=== PATIENT | male | born 1975 | race Caucasian/White ===

== ENCOUNTER 2018-07-10 14:24 | Emergency (ER) | payer BC, OTHER ==
[~2018-07-10] VITALS: Ht 165.1 cm; Wt 90.3 kg
[~2018-07-10 14:24] MED LIST: DENIES
[2018-07-10 14:26] VITALS: Ht 165.1 cm; Wt 90.3 kg
--- NOTE | 2018-07-10 20:40 | ERD ---
ER Documentation Chief Complaint Chief Complaint Pt feeling depressed, SI idiation, plan to cut with knife. HPI This is a 42-year-old male with a history of trauma to the left hand with chronic discoordination, depression with previous suicidal ideations and desire for deliberate self cutting who is presenting with acute suicidal ideations and a desire for deliberate self cutting. The patient was evaluated by his physician today and was given bad news regarding his left hand. The patient reportedly needs to use his hands for his job, but he was told that he is unlikely to ever regain complete dexterity with the hand and that he was likely not going to be able to work in his previous capacity. Since this episode, the patient no longer wants to live anymore. He has thought about cutting his arms. The patient does not endorse significant issues with sleep. The patient does feel anxious and depressed. He does endorse a decrease in interest of things he used to enjoy. He endorses difficulty concentrating. He has a decreased appetite. He does endorse guilty feelings regarding his previous trauma and his inability to work for his family. He does not endorse auditory hallucinations. He does note that when he closes his eyes, he sees shadow figures moving about. He does not endorse any homicidal ideations. The patient denies feeling sick recently. The patient denies fever or chills. The patient has had no headache or vision changes. The patient does not endorse neck or back pain. The patient denies lightheadedness or dizziness. The patient has had no chest pain or trouble breathing. The patient denies nausea or vomiting. The patient denies abdominal pain. The patient denies changes to bowel movements or urination. The patient has had no focal deficits. The patient has had no weakness or numbness or tingling to the face or extremities. ROS All systems reviewed and are negative except as per history of present illness. Medications Home Meds Discontinued Reported Medications [Denies] No Conflict Check 09/08/10 Allergies Allergies: Coded Allergies: No Known Allergies (Verified Allergy, Mild, 07/10/18) PMhx/Soc History of Surgery: Yes (left arm injury ) Anesthesia Reaction: No Hx Neurological Disorder: No Hx Respiratory Disorders: No Hx Cardiac Disorders: No Hx Psychiatric Problems: Yes (Depression, anxiety) Hx Miscellaneous Medical Probl: No Hx Alcohol Use: No Hx Substance Use: No Hx Tobacco Use: No Smoking Status: Unknown if ever smoked FmHx Family History: No diabetes Physical Exam Vitals Vital Signs Date Temp Pulse Resp B/P (MAP) Pulse Ox O2 O2 Flow FiO2 Time Delivery Rate 07/10/18 80 19 107/62 96 Room Air 19:19 (77) 07/10/18 97.9 94 18 134/84 98 14:26 (101) Physical Exam Const: No apparent distress, well-developed, well-nourished Head: Normocephalic, Atraumatic Eyes: Normal Conjunctiva. Extraocular movements intact. Pupils equal, round and reactive to light ENT: Normal External Ears, Nose and Mouth. Neck: Full range of motion. No meningismus. Resp: Clear to auscultation bilaterally, No wheezes, rales or rhonchi Cardio: Regular rate and rhythm. No murmurs, rubs or gallops Abd: Soft, non tender, non distended. Normal bowel sounds Skin: No petechiae or rashes Back: No midline tenderness. No CVA tenderness Ext: No cyanosis, or edema. Large scar to the left forearm. Neur: Awake and alert, oriented 4. Cranial nerves intact. No facial droop. Normal strength, sensation. Decreased dexterity to the right hand. Psych: Depressed affect, suicidal ideations, please see HPI for further details. Result Diagram: 07/10/18 1536 07/10/18 1536 Results 24 hrs Laboratory Tests Test 07/10/18 15:36 White Blood Count 6.6 10^3/ul Red Blood Count 5.32 10^6/ul Hemoglobin 14.0 g/dl Hematocrit 42.1 % Mean Corpuscular Volume 79.1 fl Mean Corpuscular Hemoglobin 26.3 pg Mean Corpuscular Hemoglobin Concent 33.3 g/dl Red Cell Distribution Width 14.2 % Platelet Count 292 10^3/UL Mean Platelet Volume 11.8 fl Immature Granulocytes % 0.300 % Neutrophils % 58.3 % Lymphocytes % 32.7 % Monocytes % 6.7 % Eosinophils % 1.5 % Basophils % 0.5 % Nucleated Red Blood Cells % 0.0 /100WBC Immature Granulocytes # 0.020 10^3/ul Neutrophils # 3.8 10^3/ul Lymphocytes # 2.1 10^3/ul Monocytes # 0.4 10^3/ul Eosinophils # 0.1 10^3/ul Basophils # 0.0 10^3/ul Nucleated Red Blood Cells # 0.0 10^3/ul Urine Color YELLOW Urine Clarity CLEAR Urine pH 7.0 Urine Specific [place] 1.020 Urine Ketones NEGATIVE mg/dL Urine Nitrite NEGATIVE mg/dL Urine Bilirubin NEGATIVE mg/dL Urine Urobilinogen NEGATIVE mg/dL Urine Leukocyte Esterase NEGATIVE [place]/ul Urine Hemoglobin NEGATIVE mg/dL Urine Glucose NEGATIVE mg/dL Urine Total Protein NEGATIVE mg/dl Sodium Level 138 mmol/L Potassium Level 3.9 mmol/L Chloride Level 104 mmol/L Carbon Dioxide Level 24 mmol/L Anion Gap 10 Blood Urea Nitrogen 12 mg/dl Creatinine 0.52 mg/dl Est Glomerular Filtrat Rate mL/min > 60 mL/min Glucose Level 118 mg/dl Calcium Level 9.1 mg/dl Total Bilirubin 0.0 mg/dl Direct Bilirubin 0.00 mg/dl Indirect Bilirubin 0.0 mg/dl Aspartate Amino Transf (AST/SGOT) 22 IU/L Alanine Aminotransferase (ALT/SGPT) 24 IU/L Alkaline Phosphatase 68 IU/L Total Protein 7.0 g/dl Albumin 4.2 g/dl Globulin 2.80 g/dl Albumin/Globulin Ratio 1.50 Salicylates Level < 1.0 mg/dl Urine Opiates Screen Negative Acetaminophen Level < 10.0 ug/ml Urine Barbiturates Negative Urine Amphetamines Screen Negative Urine Benzodiazepines Screen Negative Urine Cocaine Screen Negative Urine Cannabinoids Negative Ethyl Alcohol Level < 10.0 mg/dl Procedures/MDM MDM The patient's presentation warrants further investigation. Previous medical records, if available, were reviewed. LABS The patient's laboratory testing was obtained and reviewed. No emergent treatment was required unless described below. CBC: No E/o of systemic infection or severe anemia or thrombocytopenia CMP: No E/o severe acidosis or alkalosis or renal failure or liver disease or diabetic ketoacidosis Urine: No E/o acute infection or hematuria Tox: No E/o alcohol abuse. No E/o illicit drug use. No E/o salicylate or acetaminophen use. TREATMENT/DISPOSITION The patient's workup included a medical screening examination, laboratory analysis, and diagnostic imaging such as EKG, chest x-ray or CT brain as indicated. The patient's laboratory analysis, diagnostic imaging do not suggest an acute organic pathology. At this time I believe the patient's presentation is consistent with underlying psychiatric illness and likely exacerbation of this illness and/or psychosis. I have a much lower clinical concern for delirium or acute organic pathology such as toxicologic, metabolic, ischemic, intracranial hemorrhage, infectious process. However, we must rule this out prior to relying a diagnosis of underlying psychiatric illness. The patient is medically cleared for psychiatric evaluation. I kept the patient and/or family informed of laboratory and diagnostic imaging results throughout the emergency room course. The patient did not require any physical or chemical restraint while under my care. The patient was medically cleared. Psychiatric consultation: Telemetry medicine psychiatry has been consulted on this case to evaluate the patient for possible acute psychiatric illness that would require inpatient hospitalization. Tele-psychiatric recommendations are currently pending. Medication recommendations will be addressed. I do feel that the patient will require a 5150 for inpatient psychiatric management. The patient will be signed out to the oncoming physician. OBSERVATION NOTE Time: 4 hours Family Hx: No Diabetes Evaluation: Multiple exams showed improving symptoms and no evidence of worsening psychosis Disclaimer: Inadvertent spelling and grammatical errors are likely due to EHR/dictation software use and do not reflect on the overall quality of patient care. Note that the electronic time recorded on this note does not necessarily reflect the actual time of the patient encounter. Departure Diagnosis: Primary Impression: Major depressive disorder Major depression recurrence: recurrent Active/Remission status: currently active Major depression episode severity: severe Psychotic features: with psychotic features Qualified Codes: F33.3 - Major depressive disorder, recurrent, severe with psychotic symptoms Additional Impressions: Suicidal ideations Visual hallucinations Condition: Serious RADHAMES GALEAS MD Jul 10, 2018 20:39
--- NOTE | 2018-07-10 20:49 | PSY ---
Date/Time of Note Date/Time of Note DATE: 07/10/18 TIME: 20:30 Psychiatric Subjective Eval Consent Pt consented to telemedicine: Yes Subjective Evaluation Patient location: emergency Chief Complaint: Pt feeling depressed, SI idiation, plan to cut with knife. History of present illness Patient seen with hospital phone interpretation service. The patient stated he came tonight because he had an accident in the past at work (February,) involving cutting the tendons in his hand and today his doctor told him he didn't want to talk to him anymore or treat him anymore as there is nothing more he could do for him. He stated he felt somewhat depressed since the accident but today's events made him feel more depressed. He stated his went to the store today, and when she returned he was about to "hurt himself." He had been thinking about "cutting his veins" and bleeding to . He had thought about doing this in the past as well but today after being told that nothing more c ould be done with his hand and that he wouldn't be able to work anymore he decided to do it. He stated he had not taken any action yet today but had only been planning and deciding to do it today. He stated since being with his family in the ED he has felt better though he stated if he returned home he was certain he would have the urge to cut himself again as he would start thinking again about the problems with his hand. Past psychiatric history None. No past suicide attempts. Hospitalization: no Family History "My son is a special child." Allergies: Coded Allergies: No Known Allergies (Verified Allergy, Mild, 07/10/18) Substance Abuse Substance abuse history: No Prior substance abuse treatmen: No Social History Marital status: DPA/Conservatorship: No Occupation/[employer]: Hasn't been working since injury in 2018. Had been working in [employer]. Psychiatric Objective Eval Mental Status Examination: Eye Contact: Good Psychomotor Activity: Normal Behavior: Cooperative Speech: Clear AFFECT: Appropriate Mood: Depressed Though Process: Linear Thought Content: Normal Suicidal: Yes Homicidal: No On 72 hour hold: No Orientation: x4 Cognition: Alert Insight: Intact Judgement: Impared Attention Span: Intact Laboratory Results Laboratory Tests Test 07/10/18 15:36 White Blood Count 6.6 10^3/ul Red Blood Count 5.32 10^6/ul Hemoglobin 14.0 g/dl Hematocrit 42.1 % Mean Corpuscular Volume 79.1 fl Mean Corpuscular Hemoglobin 26.3 pg Mean Corpuscular Hemoglobin Concent 33.3 g/dl Red Cell Distribution Width 14.2 % Platelet Count 292 10^3/UL Mean Platelet Volume 11.8 fl Immature Granulocytes % 0.300 % Neutrophils % 58.3 % Lymphocytes % 32.7 % Monocytes % 6.7 % Eosinophils % 1.5 % Basophils % 0.5 % Nucleated Red Blood Cells % 0.0 /100WBC Immature Granulocytes # 0.020 10^3/ul Neutrophils # 3.8 10^3/ul Lymphocytes # 2.1 10^3/ul Monocytes # 0.4 10^3/ul Eosinophils # 0.1 10^3/ul Basophils # 0.0 10^3/ul Nucleated Red Blood Cells # 0.0 10^3/ul Urine Color YELLOW Urine Clarity CLEAR Urine pH 7.0 Urine Specific [place] 1.020 Urine Ketones NEGATIVE mg/dL Urine Nitrite NEGATIVE mg/dL Urine Bilirubin NEGATIVE mg/dL Urine Urobilinogen NEGATIVE mg/dL Urine Leukocyte Esterase NEGATIVE [place]/ul Urine Hemoglobin NEGATIVE mg/dL Urine Glucose NEGATIVE mg/dL Urine Total Protein NEGATIVE mg/dl Sodium Level 138 mmol/L Potassium Level 3.9 mmol/L Chloride Level 104 mmol/L Carbon Dioxide Level 24 mmol/L Anion Gap 10 Blood Urea Nitrogen 12 mg/dl Creatinine 0.52 mg/dl Est Glomerular Filtrat Rate mL/min > 60 mL/min Glucose Level 118 mg/dl Calcium Level 9.1 mg/dl Total Bilirubin 0.0 mg/dl Direct Bilirubin 0.00 mg/dl Indirect Bilirubin 0.0 mg/dl Aspartate Amino Transf (AST/SGOT) 22 IU/L Alanine Aminotransferase (ALT/SGPT) 24 IU/L Alkaline Phosphatase 68 IU/L Total Protein 7.0 g/dl Albumin 4.2 g/dl Globulin 2.80 g/dl Albumin/Globulin Ratio 1.50 Salicylates Level < 1.0 mg/dl Urine Opiates Screen Negative Acetaminophen Level < 10.0 ug/ml Urine Barbiturates Negative Urine Amphetamines Screen Negative Urine Benzodiazepines Screen Negative Urine Cocaine Screen Negative Urine Cannabinoids Negative Ethyl Alcohol Level < 10.0 mg/dl Assessment and Plan Assessment/Diagnosis Diagnosis Adjustment Disorder with Depressed Mood Recommendation/Plan Multiple antipsychotics: No Discharge Disposition: Psychiatric inpatient Legal Status: Place involuntary hold Other Recommend inpatient admission as he is unable to maintain his safety at home JOSELUIS FERNANDEZ MD Jul 10, 2018 20:41
[2018-07-11 08:59] VITALS: BP 111/72; PULSE 79; RESP 14
== END 2018-07-11 09:23 ==
LOC: E/R 14:24
DX: F33.3 Major depressive disorder, recurrent, severe with psychotic symptoms (principal)
CPT/HCPCS: 36415; 80053; 80306; 80307; 81003; 85025; Z7502